=== PATIENT | male | born 1960 | race Caucasian/White ===

== ENCOUNTER → 2021-12-02 | Outpatient (CLI) | payer OTHER | LOC: HEART 5 14:41 | DX: J44.9 Chronic obstructive pulmonary disease, unspecified (principal) | CPT/HCPCS: 94060; 94729 ==

== ENCOUNTER → 2022-01-02 | Outpatient (CLI) | payer OTHER | LOC: KOH-I 13:00 | DX: Z87.891 Personal history of nicotine dependence (principal); R91.8 Other nonspecific abnormal finding of lung field; I27.20 Pulmonary hypertension, unspecified | CPT/HCPCS: 71271 ==